=== PATIENT | female | born 1975 | race Caucasian/White ===

== ENCOUNTER 2023-07-01 02:03 | Emergency (ER) | payer BC, SELFPAY ==
[2023-07-01 02:07] VITALS: BP 166/121; PULSE 120; RESP 16; TEMP 36.4; O2SAT 100; BMI 37.8
[2023-07-01 02:33] LABS: Appearance Urine Clear (Clear); Bilirubin Urine Negative (Negative); Blood Urine 3+ (Negative); Color Urine Pink (Yellow); Glucose Urine Negative (Negative); Ketones Urine Negative (Negative); Leukocyte Esterase Urine 2+ (Negative); Nitrite Urine Negative (Negative); Protein Urine 1+ (Negative); Specific Gravity Urine <= 1.005 (1.000-1.030); Urobilinogen Urine 0.2 (0.2-1.0)
[2023-07-01 02:34] LABS: Amorphous Sediment Urine Few; Bacteria Urine Moderate; Mucus Urine Few; Squamous Epithelial Cell Urine Few (None-Few); WBC Urine 25-50 (0-5)
--- NOTE | 2023-07-01 02:51 | ED.GENADULT ---
HPI - General Adult General Chief complaint: Urogenital Problems, Female Stated complaint: poss uti, blood in urine Time Seen by Provider: 07/01/23 02:05 Source: patient Mode of arrival: ambulatory Limitations: no limitations History of Present Illness HPI narrative: 47-year-old female presents with dysuria and urgency for the past 5 hours, awoke overnight to with urgency again and notice blood in her urine. No back pain, no fever, no vomiting. Mild suprapubic discomfort. Tried taking to cranberry tablets with limited improvement in her symptoms. Has not tried Tylenol or ibuprofen. Rarely gets bladder infections but is worried this could be going on and does not want the infection to worsen since it is very uncomfortable. Did not try any other interventions prior to coming to ED. No trauma, no injury, no gynecological symptoms. Normal bowel movements, no bloody stools. Does not take any anticoagulants. No history of recent surgeries. Allergy to penicillin and sulfas, denies major long-term health problems. ROS notable for the urinary symptoms as above. Otherwise negative for generalized, gynecological, other urinary, gastrointestinal or skin changes. Related Data Previous Rx's Medication Instructions Recorded ciprofloxacin HCl 250 mg tablet 250 mg PO Q12H #9 tabs 07/01/23 Allergies Allergy/AdvReac Type Severity Reaction Status Date / Time Penicillins Allergy Severe Verified 07/01/23 02:11 Sulfa (Sulfonamide Allergy Unknown Verified 07/01/23 02:11 Antibiotics) Exam Const: Vital Signs, click to edit/add: Vital Signs - 24 hr 07/01/23 02:07 Temperature 97.5 F L Pulse Rate [Left P ulse Oximeter] 120 H Respiratory Rate 16 Blood Pressure [Ri ght Upper Arm] 166/121 H Pulse Oximetry 100 Oxygen Delivery Me thod Room Air Documenting provider has reviewed patient's vital signs: yes Common normals: no apparent distress General appearance: cooperative, comfortable and well kempt HENMT: Common normals: normocephalic Head and scalp: normocephalic Face and sinus: normal facial exam Eye: General eye: normal appearance of both eyes Resp: Common normals: normal respiratory effort Effort & inspection: able to speak in complete sentences GI: Common normals: Normal to inspection, nondistended, normoactive bowel sounds present, soft to palpation, non-tender and no masses Auscultation: normoactive bowel sounds Palpation: soft : Common normals: no CVA tenderness Bladder/kidney exam: no CVA tenderness Back & Pelvis: Common normals: no CVA tenderness Psych: Appearance: well kempt Attitude: engaged Activity/motor behavior: appropriate eye contact Insight: insight good Judgement: judgment good Skin: Common normals: no rashes or lesions noted General skin exam: no rashes or lesions noted Course Course ED Course: Urinalysis reviewed, suspicious for urinary tract infection. Counseled on other differential items including kidney stone, bladder cancer, gynecological bleeding, multiple others. Patient says that she is pretty confident as a bladder infection would not want further workup or investigation, I agree. Recommended ciprofloxacin due to multiple allergies, peridium, ibuprofen. Counseled on alarm symptoms and home management. Additional supply of ciprofloxacin will be sent to her pharmacy, instructed on use. Patient verbalizes understanding and agreement, see written instructions Vital Signs Vital signs: Initial Vital Signs Temperature 97.5 F L 07/01/23 02:07 Temperature Source Temporal Artery Scan 07/01/23 02:07 Pulse Rate 120 H 07/01/23 02:07 Pulse Rhythm Regular 07/01/23 02:07 Respiratory Rate 16 07/01/23 02:07 Blood Pressure 166/121 H 07/01/23 02:07 Blood Pressure Mean 136 H 07/01/23 02:07 Blood Pressure Position Sitting 07/01/23 02:07 Pulse Oximetry 100 07/01/23 02:07 Oxygen Delivery Method Room Air 07/01/23 02:07 Vital Signs Temperature 97.5 F L 07/01/23 02:07 Pulse Rate 120 H 07/01/23 02:07 Respiratory Rate 16 07/01/23 02:07 Blood Pressure 166/121 H 07/01/23 02:07 Pulse Oximetry 100 07/01/23 02:07 Oxygen Delivery Method Room Air 07/01/23 02:07 Temperature 97.5 F L 07/01/23 02:07 Pulse Rate 120 H 07/01/23 02:07 Respiratory Rate 16 07/01/23 02:07 Blood Pressure 166/121 H 07/01/23 02:07 Pulse Oximetry 100 07/01/23 02:07 Oxygen Delivery Method Room Air 07/01/23 02:07 Medical Decision Making Lab Data Lab results reviewed: Yes I reviewed the patient's lab results Lab results narrative: Suspicious for urinary infection. Culture pending. Labs: Lab Results 07/01/23 Range/Units 02:15 Urine Color [place] A (Yellow) Urine Appearance Clear (Clear) Urine pH 6.0 (5.0-8.5) Ur Specific [place] <= 1.005 (1.000-1.030) Urine Protein 1+ A (Negative) Urine Glucose (UA) Negative (Negative) Urine Ketones Negative (Negative) Urine Blood 3+ A (Negative) Urine Nitrite Negative (Negative) Urine Bilirubin Negative (Negative) Urine Urobilinogen 0.2 (0.2-1.0) Ur Leukocyte Esterase 2+ A (Negative) Urine RBC 5-10 A (0-2) Urine WBC 25-50 A (0-5) Ur Squamous Epith Cells Few (None-Few) Amorphous Sediment Few A (None) Urine Bacteria Moderate A (None) Urine Mucus Few A (None) Discharge Plan Discharge Clinical Impression: Urinary tract infection Patient Disposition: Home w/ Parent or Adult Condition: Improved Instructions: Urinary Tract Infection in Women (DC) Additional Instructions: As we discussed, it seems like your symptoms are from a bladder infection and not something more dangerous. I have started you on ciprofloxacin, a common antibiotic. The Pyridium that your given will turn your urine bright orange, do not be alarmed. I have also given you a dose of ibuprofen. He may continue taking ibuprofen 600 mg every 6 hours as needed for discomfort or Tylenol 1000 mg every 6 hours. You can repeat [id number] azo at noon if needed. The antibiotics will take about 24 hours to kick in and help you feel better. If you are not noticing improvement after 3 days, you should make a follow-up appointment in the clinic. We will culture your urine to ensure that the antibiotic choices appropriate. We will call you if it needs to be switched. Your next dose of antibiotic will be due around 3:00 p.m.. Please continue taking this twice daily for a total of 5 days. If you have high fever, severe weakness, persistent vomiting and back pain, you should come back to the emergency department for further evaluation. Activity Level: No Restrictions Discharge Diet: Regular Prescriptions: New ciprofloxacin HCl 250 mg tablet 250 mg PO Q12H Qty: 9 0RF Follow Up/Referrals: Provider,Not a Local [Primary Care Provider] - Stand Alone Forms: [place] [facility] Info Instructions
[2023-07-01] MEDS: CIPROFLOXACIN 500 MG TABLET PO (02:55)
[2023-07-01] MEDS: PHENAZOPYRIDINE HCL 200 MG TABLET PO (02:55)
[2023-07-01 03:00] VITALS: PULSE 105; RESP 18; O2SAT 98
== END 2023-07-01 03:03 | disposition home or self-care (01) ==
LOC: ED 02:53
PROVIDERS: Emergency Provider Family Medicine
DX: N39.0 Urinary tract infection, site not specified (principal)
CPT/HCPCS: 81001; 87086; 87186; 99283; A9270